=== PATIENT | female | born 1965 | race Caucasian/White ===

== ENCOUNTER 2025-02-19 08:09 | Emergency (ER) | payer MEDICAID ==
[~2025-02-19] VITALS: Ht 165.1 cm; Wt 79.9 kg
[2025-02-19 08:21] VITALS: TEMP 97.4
--- NOTE | 2025-02-19 08:38 | Physician Documentation ---
History of Present Illness Chief Complaint: Flank Pain Stated Complaint: FEVER Time Seen by MD: 08:34 HPI [age] year old female history of lung cancer p/w 1 month increasing back pain and fevers. She has progressively been unable to walk due to pain and weakness. Fevers last 2 weeks to 102 with chills.Constipated the last few days. No incontinence of bowel or bladder. Medication Reconciliation Allergies: Coded Allergies: Penicillins (Verified Allergy, Unknown, 02/19/25) Sulfa (Sulfonamide Antibiotics) (Verified Allergy, Unknown, 02/19/25) levofloxacin (Verified Allergy, Unknown, 02/19/25) meperidine (Verified Allergy, Unknown, 02/19/25) Scheduled Losartan Potassium (Losartan Potassium), 1 TAB PO DAILY, (Reported) Methocarbamol (Methocarbamol), 3 TAB PO Q8H Methylprednisolone (Medrol Dosepak), 0 PO UD Review of Systems All Other Systems at this time: Reviewed and Negative Physical Exam Vital Signs: Temperature: 97.4, Source: Temporal, Heart Rate: 100, Respiratory Rate: 20, BP: 127/91, Pulse Oximetry: 97, Weight: 79.900 Oxygen Flow Rate: 0 Physical Exam Well-appearing no acute distress Moist mucous membranes Head atraumatic Clear oropharynx Awake alert oriented normal speech Pulmonary clear to auscultation bilaterally Cardiac no murmur Abdomen is soft nontender MSK no C-spine or T-spine tenderness. Mid low lumbar tenderness 5/5 bilateral hip flexion knee extension and dorsiflexion Intact sensation Progress Progress Note consulted with hospitalist who states that there is no MRI available and therefore patient does not need admission Results/Orders Results/Orders Orders - GALE GODDARD MD Urinalysis, Cult If Indicated (02/19/25 08:34) Vital Signs 02/19/25 08:21 Temp 97.4 Pulse 100 Resp 20 B/P (MAP) 127/91 Pulse Ox 97 O2 Flow Rate 0 Departure Disposition: 01 HOME / SELF CARE / HOMELESS Impression: Primary Impression: Low back pain Qualified Codes: M54.50 - Low back pain, unspecified; G89.29 - Other chronic pain Additional Impression Text Patient with questionable metastatic lung cancer presenting for 1 month of back pain and intermittent fevers. She is afebrile today and well-appearing with a normal neuro exam. She does have some midline discomfort around her lumbar spine. I suspect that she likely has a metastasis to her spine. Certainly she could have epidural abscess or diskitis however she is not septic appearing today looks well no fever so less likely. She needs MRI which we are unable to procure this weekend. She has appointment coming up with her primary and could pursue this as an outpatient safely Additional Instructions: As discussed we are unable to perform MRI today so unfortunately it will have to be performed as an outpatient. Return if your fever reoccurs. Referrals: NO PRIMARY CARE PROVIDER (PCP) Prescriptions Methocarbamol (Methocarbamol) 500 Mg Tablet 3 TAB PO Q8H for 30 Days, #90 TAB 0 Refills Prov: GALE GODDARD MD 02/19/25 Methylprednisolone (Medrol Dosepak) 4 Mg Tab.ds.pk 0 PO UD, #21 TAB 0 Refills take 6 Pills Day 1, 5 Pills Day 2, 4 Pills Day 3, 3 Pills Day 4, 2 Pills Day 5 and 1 pill Day 6 Prov: GALE GODDARD MD 02/19/25 Signature Scribe Signature: na Attestation: GALE Alexander MD Feb 19, 2025 08:38
[2025-02-19] MEDS: morphine 4 MG/ML inj SYRINge IV ONE (09:19)
[2025-02-19 10:05] LABS: MEAN PLATELET VOLUME 8.2 FL (7.4-10.4); RED CELL DISTRIBUTION WIDTH 15.1 % (11.5-14.5)
[2025-02-19] MEDS ORDERED: LOSA100T58 PO (10:07)
[2025-02-19 10:15] LABS: CREATININE 0.89 MG/DL (0.40-0.90); TOTAL CARBON DIOXIDE 25.3 MMOL/L (24-32); eCRCL 60 ML/MIN; eGFR 64 ML/MIN
[2025-02-19 12:20] LABS: LEUKOCYTE ESTERASE ,URINE NEGATIVE (Neg); NITRITES, URINE NEGATIVE (Neg); OCCULT BLOOD,URINE NEGATIVE (Neg)
[2025-02-19 12:21] LABS: UA COLLECTION TYPE CLN CATCH MIDSTREAM
--- NOTE | 2025-02-19 13:37 | RADIOLOGY REPORT ---
EXAM: CT CT LUMBAR SPINE INDICATION: eval for mass TECHNIQUE: Axial images of the lumbar spine have been obtained along with coronal and sagittal reformatted images. CT scans at this facility use dose modulation, iterative reconstruction, and/or weight based dosing when appropriate to reduce radiation dose to as low as reasonably achievable. COMPARISON: None FINDINGS: ANATOMY: Five lumbar-type vertebral bodies are present. The most inferior well- formed disc space will be referred to as L5-S1 for purposes of numbering in this report. VERTEBRAL BODIES: The vertebral bodies are normal in height and alignment. SPINAL CANAL: No spinal canal narrowing. INTERVERTEBRAL DISCS: Intervertebral disc height loss with multilevel trace posterior disc osteophyte complexes L2-3, L3-4, L4-5, L5-S1. FACETS: Multilevel mild to moderate facet arthropathy. subsequent at least mild bilateral bony foraminal narrowing at L3-4, L4-5, L5-S1. OTHER: Nonobstructive 5 mm stone of the right superior kidney. Prior healed left posterior 12th rib fracture. IMPRESSION: 1. No CT evidence of an acute fracture. 2. Multilevel degenerative change of the lumbar spine with subsequent at least mild bilateral bony foraminal narrowing at L3-4, L4-5, L5-S1. 3. Nonobstructive 5 mm stone of the right superior kidney.
[2025-02-19] MEDS ORDERED: METH4TAB81 PO (13:48)
[2025-02-19] MEDS ORDERED: METH-797 PO (14:00)
[2025-02-19] MEDS: morphine sulfate IR 15MG tablet PO ONE (14:25)
[2025-02-19 14:30] VITALS: BP 120/84; PULSE 93; RESP 16; O2SAT 97
== END 2025-02-19 14:31 | disposition home or self-care (01) ==
LOC: ER 08:11
DX: M54.50 Low back pain, unspecified (principal); Z88.0 Allergy status to penicillin; Z88.1 Allergy status to other antibiotic agents; Z88.2 Allergy status to sulfonamides; Z88.5 Allergy status to narcotic agent
CPT/HCPCS: 36415; 72131; 80053; 81003; 85025; 85651; 86140; 96374; 99285; J2270